=== PATIENT | female | born 1965 | race Caucasian/White ===

== ENCOUNTER → 2016-05-27 | Outpatient (CLI) | payer BC ==
[2016-05-27 10:57] LABS: BASO % 0.3 %; BASO ABS # 0.02 K/uL (0-0.2); COMPLETE YES; EOS % 2.1 %; HEMATOCRIT 42.1 % (37-47); IG% 0.4 %; LYMPH % 24.4 %; MEAN CELL VOLUME 93.3 fL (80-100); MEAN CORPUSCULAR HEMOGLOBIN 30.8 pg (25-34); MEAN PLATELET VOLUME 10.7 fL (7.4-10.4); MONO % 6.9 %; NEUT % 65.9 %; PLATELET COUNT 348 K/uL (130-400); RED BLOOD COUNT 4.51 M/uL (4.2-5.4); WHITE BLOOD COUNT 7.79 K/uL (4.8-10.8)
[2016-05-27 11:28] LABS: ALT/SGPT 27 U/L (12-78); CREATININE 0.97 mg/dl (0.60-1.20)
[2016-05-27 11:31] LABS: ALKALINE PHOSPHATASE 45 U/L (45-117); AST/SGOT 18 U/L (15-37)
--- NOTE | 2016-05-27 13:38 | DIAGNOSTIC IMAGING REPORT ---
THORACIC SPINE 3 VIEWS ROUTINE CLINICAL HISTORY: Upper back pain. Hypermobility. Johnny-Danlos syndrome COMPARISON STUDY: No previous studies for comparison. FINDINGS: The paraspinal line is not displaced. There is a minimal spinal curvature. There are minor degenerative changes. No fractures or subluxations are visualized. No destructive lesions are evident. IMPRESSION: Minor degenerative change. No fractures, subluxations, or destructive lesions are visualized on conventional radiographic imaging Electronically signed by: Doug Cruz M.D. 05/27/2016 1:36 PM
== END | disposition home or self-care (01) ==
LOC: C.LAB1850 09:43
PROVIDERS: ATTEND Internal Medicine Rheumatology
DX: M54.6 Pain in thoracic spine (principal); Q79.6 Ehlers-Danlos syndromes; Z79.899 Other long term (current) drug therapy